=== PATIENT | female | born 1990 | race Caucasian/White ===

== ENCOUNTER 2018-02-06 09:48 | Emergency (ER) | payer MEDICAID ==
[~2018-02-06] VITALS: Ht 157.5 cm; Wt 58.1 kg
[2018-02-06 09:55] VITALS: Ht 157.5 cm; Wt 58.1 kg
[2018-02-06 10:30] LABS: microscopic required? NO
[2018-02-06 10:36] LABS: urine erythrocyte NEGATIVE (NEGATIVE)
[2018-02-06 10:38] LABS: BASOPHIL % 0.5 % (0-2); PLATELET COUNT 252 x10^3mcL (130-400); RED CELL DISTRIBUTION WIDTH 13.4 % (11.5-14.5)
[2018-02-06 12:20] VITALS: BP 98/61
== END 2018-02-06 12:20 | disposition home or self-care (01) ==
LOC: ED 09:48
PROVIDERS: Emergency Medicine
DX: O20.0 Threatened abortion (principal)
CPT/HCPCS: 36415